=== PATIENT | male | born 1980 | race Caucasian/White ===

== ENCOUNTER 2018-12-09 22:03 | Inpatient (IN) ==
[~2018-12-09] VITALS: Ht 175.3 cm; Wt 81.2 kg
--- NOTE | 2018-12-09 22:15 | NUR ---
PT BIBS. C/O "FEEL LIKE MY LEGS ARE SWELLING UP" R L E TENDERNESS +WARM TO TOUCH. VSS. PT WALK WITH CANE. AOX4. RESP EVEN AND UNLABORED. PT IN BED 9. WILL CONTINUE TO MONITOR.
[2018-12-09] MEDS ORDERED: IV NS 0.9% 1,000 ML BAG IV ONE (23:00)
[2018-12-09] MEDS ORDERED: KETOROLAC TROMETHAMINE INJ 30 MG/ML VIAL IV ONE (23:00)
[2018-12-09] MEDS ORDERED: KETOROLAC TROMETHAMINE 15 MG/ML VIAL ONE (23:00)
[2018-12-09] MEDS ORDERED: ONDANSETRON HCL/PF 4 MG/2 ML VIAL IVP ONE (23:00)
[2018-12-09] MEDS ORDERED: VANCOMYCIN 1 GM in IV D5W 250 ML IV ONE (23:00)
[2018-12-09] MEDS ORDERED: HYDROMORPHONE INJ 2 MG/ML DISP.SYRIN IV ONE (23:00)
[2018-12-09] MEDS ORDERED: PIPERACILLIN /TAZOBACTAM 3.375 G in IV D5W 50 ML IV ONE (23:00)
[2018-12-09] MEDS ORDERED: HYDROMORPHONE 1 MG/1 ML DISP.SYRIN ONE (23:01)
[2018-12-09] MEDS ORDERED: PIPERACILLIN /TAZOBACTAM 3.375 G VIAL IV ONE (23:01)
[2018-12-09] MEDS ORDERED: ONDANSETRON HCL/PF 4 MG/2 ML VIAL ONE (23:01)
[2018-12-09] MEDS ORDERED: VANCOMYCIN 1 GM VIAL ONE (23:01)
--- NOTE | 2018-12-09 23:05 | NUR ---
BLOOD DRAWN AND GIVEN TO LAB
[2018-12-09 23:12] LABS: BASOPHILS # (AUTO) 0.1 /CMM (0.0-0.2); BASOPHILS % (AUTO) 0.6 % (0.0-2.0); EOSINOPHILS % (AUTO) 1.2 % (0.0-6.0); HEMATOCRIT 38 % (39-51); HEMOGLOBIN 13.2 g/dL (13.5-17.5); LYMPHOCYTES # (AUTO) 1.1 /CMM (0.8-4.8); LYMPHOCYTES % (AUTO) 13.3 % (20.0-44.0); MEAN CORPUSCULAR HGB CONC 35 g/dl (31.0-36.0); MEAN CORPUSCULAR VOLUME 84 fL (80-96); MONOCYTES # (AUTO) 1.2 /CMM (0.1-1.30); MONOCYTES % (AUTO) 14.6 % (2.0-12.0); NEUTROPHILS # (AUTO) 5.9 /CMM (1.8-8.9); NEUTROPHILS % (AUTO) 70.3 % (43.0-81.0); PLATELET COUNT (AUTO) 268 /CMM (150-450); WHITE BLOOD COUNT (AUTO) 8.4 K/uL (4.3-11.0)
[2018-12-09 23:25] LABS: CALCIUM, SERUM 9.2 mg/dL (8.5-10.1); CREATININE 0.9 mg/dL (0.6-1.3); POTASSIUM 3.8 mmol/L (3.5-5.1)
[2018-12-09 23:31] LABS: ALBUMIN 3.4 g/dL (3.4-5.0); BILIRUBIN,DIRECT 0.2 mg/dL (0.0-0.2); BILIRUBIN,TOTAL 0.8 mg/dL (0.2-1.0); TOTAL PROTEIN, SERUM 7.8 g/dL (6.4-8.2)
--- NOTE | 2018-12-10 00:06 | NUR ---
CALLED NURSING SUP FOR BED
--- NOTE | 2018-12-10 00:08 | NUR ---
BED 201
--- NOTE | 2018-12-10 00:18 | NUR ---
RADIOLOGY AT BEDSIDE FOR XRAY
--- NOTE | 2018-12-10 00:24 | NUR ---
DR RUBEN GREER FOR ADMISSION
--- NOTE | 2018-12-10 01:03 | NUR ---
REPORT GIVEN TO SILVANA PASCUAL FOR [facility]
[2018-12-10] MEDS ORDERED: IV NS 0.9% 1,000 ML IV PRN (01:33)
[2018-12-10 01:35] VITALS: BP 115/68
--- NOTE | 2018-12-10 01:35 | NUR ---
RECEIVED PATIENT FROM ER FOR DX BLE CELLULITIS. AO X 3, ABLE TO MAKE NEEDS KNOWN. NO ACUTE DISTRESS NOTED. DENIES ANY PAIN AT THIS TIME. IV SITE PATENT, INTACT; FLUSHED. SKIN ASSESSMENT DONE. SAFETY REMINDERS GIVEN. ON LOW BED WITH BILATERAL UPPER SIDE RAILS UP. CALL GARCIA WITHIN EASY REACH. WILL CONTINUE TO MONITOR.
[2018-12-10] MEDS ORDERED: MAG HYDROX/AL HYDROX/SIMETH 30 ML UDC PO PRN (02:00)
[2018-12-10] MEDS ORDERED: MAGNESIUM HYDROXIDE 30 ML UDC PO PRN (02:00)
[2018-12-10] MEDS ORDERED: ACETAMINOPHEN 325 MG TABLET PO PRN (02:00)
[2018-12-10] MEDS ORDERED: HYDROCODONE/APAP 10/325MG 1 EA TABLET PO PRN (02:00)
[2018-12-10] MEDS ORDERED: ZOLPIDEM TARTRATE 5 MG TABLET PO PRN (02:00)
[2018-12-10] MEDS ORDERED: Z GUARD REMEDY 2 OZ OINT TP PRN (02:00)
[2018-12-10] MEDS ORDERED: HYDROCODONE/APAP 5/325MG 1 EACH TABLET PO PRN (02:00)
[2018-12-10] MEDS ORDERED: ONDANSETRON HCL/PF 4 MG/2 ML VIAL IVP PRN (02:00)
[2018-12-10 02:30] VITALS: BP 115/68
[2018-12-10] MEDS ORDERED: VANCOMYCIN 1 GM VIAL ONE (05:14)
[2018-12-10] MEDS ORDERED: PIPERACILLIN /TAZOBACTAM 3.375 G VIAL IV ONE (05:15)
[2018-12-10] MEDS ORDERED: VANCOMYCIN 1 GM in IV D5W 250 ML IV ONE (06:00)
[2018-12-10] MEDS ORDERED: PIPERACILLIN /TAZOBACTAM 4.5 G in IV D5W 50 ML IV SCH (06:00)
[2018-12-10] MEDS ORDERED: PIPERACILLIN /TAZOBACTAM 3.375 G in IV D5W 50 ML IV ONE (06:00)
--- NOTE | 2018-12-10 06:00 | NUR ---
PATIENT ASLEEP, EASILY AROUSABLE. RESPIRATIONS EVEN. NO SIGNS OF PAIN NOTED. DUE MEDS GIVEN WITH NO ASE NOTED. IVF INFUSING ORDERED. NEEDS ATTENDED. SAFETY PRECAUTIONS AND COMFORT MEASURES IN PLACE. WILL GIVE REPORT TO DAY SHIFT FOR CONTINUITY OF CARE.
--- NOTE | 2018-12-10 07:05 | NUR ---
MS RN INITIAL NOTES Report received at bedside. Patient received in bed, sleeping comfortably, easily aroused. No signs and symptoms of distress. Safety measure in place. Bed in lowest position with call light within reach. Will continue to monitor and assess patient.
[2018-12-10] MEDS ORDERED: FEE PK DOSING 1 MIN EA MC ONE (07:51)
[2018-12-10 08:00] VITALS: BP 102/56
[2018-12-10] MEDS ORDERED: PIPERACILLIN /TAZOBACTAM 3.375 G in IV D5W 50 ML IV SCH (12:00)
--- NOTE | 2018-12-10 12:00 | NUR ---
MS SILVANA AMA NOTES Patient decided to go AMA. IV access removed with cath tip intact, no bleeding noted. Patient has been seen by [employer] ARCHITECT and advice that it will be beneficial for patient to stay. Patient refused and adamant about leaving. AMA exitcare done, reviewed with patient and signed by patient. Discharge instructions provided: verbalized understanding. Denies any pain/discomfort. Not in any type of distress. Belongings with patient with form reviewed and signed by patient.
--- NOTE | 2018-12-10 12:01 | NUR ---
MS SILVANA HARTMANN NOTES Obstetrical Nurse aware. Hospitalist aware. Photos were refused to be taken by patient. Escorted down to lobby for safety
[2018-12-10] MEDS ORDERED: VANCOMYCIN 1.25 GM in IV D5W 500 ML IV SCH (14:00)
--- NOTE | 2018-12-11 23:53 | NUR ---
INFORMATION SENT: FACESHEET , ADMIT ORDER , 24 HOURS REPORTS , DISCHARGE�SUMMARY� , ER , H&P , PHARMACY PROGRESS NOTES , UR 12/10 INSURANCE NAME: [employer] FAX NUMBER: [phone] FAX SENT BY LIANG BIANCHI
== END 2018-12-10 12:00 | disposition home health service (06) | DRG 603 ==
LOC: ER 22:05 → MEDSG2 12-10 01:16
PROVIDERS: ADMIT Registered Nurse; ATTEND Registered Nurse
DX: L03.115 Cellulitis of right lower limb (principal); Z59.0 Homelessness; E66.9 Obesity, unspecified; Z68.26 Body mass index [BMI] 26.0-26.9, adult; F11.90 Opioid use, unspecified, uncomplicated; R79.89 Other specified abnormal findings of blood chemistry
CPT/HCPCS: 36415; 71045-TC; 73590-TC; 80048-TC; 80076-TC; 83605-TC; 85025-TC; 87040-TC; 87081-TC; 93970-TC; G0378; J1170; J1885; J2405; J2543; J3370; J7030; J7060